=== PATIENT | female | born 1995 | race Two or more races ===

== ENCOUNTER 2024-06-25 16:22 | Emergency (ER) | payer MEDICAID ==
[~2024-06-25] VITALS: Ht 157.5 cm; Wt 79.4 kg
[2024-06-25 17:43] VITALS: BP 146/91; TEMP 98.3; O2SAT 98
== END 2024-06-25 17:43 | disposition home or self-care (01) ==
LOC: ER 16:33
DX: F41.9 Anxiety disorder, unspecified (principal); I10 Essential (primary) hypertension; R06.02 Shortness of breath; R11.10 Vomiting, unspecified; R07.89 Other chest pain; R35.0 Frequency of micturition
CPT/HCPCS: 82962-TC

== ENCOUNTER 2024-09-30 15:37 | Emergency (ER) | payer MEDICAID, OTHER ==
[~2024-09-30] VITALS: Ht 162.6 cm; Wt 81.2 kg
[2024-09-30] MEDS ORDERED: ONDANSETRON 4 MG TAB.RAPDIS ONE (16:21)
[2024-09-30] MEDS: ONDANSETRON 4 MG TAB.RAPDIS PO ONE (16:30)
[2024-09-30 17:15] LABS: APPEARANCE,URINE CLEAR (CLEAR); BLOOD, URINE NEGATIVE Ery/uL (NEGATIVE); LEUKOCYTE ESTERASE ,URINE NEGATIVE (NEGATIVE); NITRITE, URINE NEGATIVE (NEGATIVE); UGLUCOSE NEGATIVE (NEGATIVE)
[2024-09-30] MEDS ORDERED: ONDA4TAB5 PO (17:22)
[2024-09-30 17:31] VITALS: BP 135/80; TEMP 98.5; O2SAT 98
[2024-09-30 17:34] LABS: PREGNANCY TEST URINE QUAL NEGATIVE (NEGATIVE)
== END 2024-09-30 17:32 | disposition home or self-care (01) ==
LOC: ER 15:37
DX: R03.0 Elevated blood-pressure reading, without diagnosis of hypertension (principal); F41.9 Anxiety disorder, unspecified; I10 Essential (primary) hypertension; Z79.899 Other long term (current) drug therapy; Z60.2 Problems related to living alone
CPT/HCPCS: 99284; 93005 ×2; 84703; 81003; 82962; Q0162